=== PATIENT | female | born 1960 | race Caucasian/White ===

== ENCOUNTER 2016-08-07 21:27 | Inpatient (IN) | payer OTHER ==
--- NOTE | ~2016-08-07 | CN ---
Consultation Report [facility] [id number] [place]. [address] NAME: POP REAL : 58 STATUS : ADM IN [facility]#: [id number] AGE: 56 ADM/REG DATE : 08/07/16 MR#: [id number] REPORT SERV DATE: 08/14/16 DICTATED BY: JAQUELINE BARBOZA DATE: 08/13/16 REPORT STATUS : Draft TRANSCRIBED BY: MODL DATE: 08/13/16 DATE OF CONSULTATION: 08/13/2016 REASON FOR CONSULTATION: Assistance with COPD. HISTORY OF PRESENT ILLNESS: Ms Real is a 56-year-old white female, smoker with COPD diagnosed by her primary care physician without pulmonary function testing, who was admitted with complaining of chest pain that ultimately required emergent 3-vessel CABG. Pulmonary was consulted for assistance with COPD. The patient is complaining of cough productive of white sputum, dyspnea on exertion, and occasional wheezing for years. She had been prescribed medications for presumed COPD, but has not been taking them due to financial constraints. She states she has been on inhalers including the "purple one" and "the one with the pill" consistent with Advair and Spiriva. She was on these inhalers and intermittently used rescue albuterol without problems for which she did feel these medications were beneficial. Currently, she is complaining of cough productive of thick white sputum. She feels her breathing is somewhat limited by post CABG pain. PAST MEDICAL HISTORY: 1. COPD as noted above-no previous pulmonary function testing. 2. Smoking/tobacco addiction. 3. Coronary artery disease-status post CABG. 4. Hyperlipidemia. 5. Hypertension. 6. Degenerative joint disease-previous back surgery. 7. Cholecystectomy. 8. Hysterectomy/oophorectomy. 9. Appendectomy. FAMILY HISTORY: She denies a family history of pulmonary diseases. SOCIAL HISTORY: Ms. Real has smoked more than one pack of cigarettes per day for 40 years. Her last cigarette was on the day of admission. She has a history of methamphetamine use and states she quit using methamphetamine in March 2016. She has a remote history of IV drug use. She denies ethanol intake or chewing tobacco. She denies occupational exposures. She works at [employer]. She is a and has two children. MEDICATIONS: She was not on any pulmonary medications as an outpatient. ALLERGIES: ASPIRIN. REVIEW OF SYSTEMS: Consultation Report [place] [id number] [place]. [address] NAME: POP REAL : 58 STATUS : ADM IN [facility]#: [id number] AGE: 56 ADM/REG DATE : 08/07/16 MR#: [id number] REPORT SERV DATE: 08/14/16 DICTATED BY: JAQUELINE BARBOZA DATE: 08/13/16 REPORT STATUS : Draft TRANSCRIBED BY: MODL DATE: 08/13/16 A 10-point system review was conducted and is remarkable for the symptoms as described in the history of present illness. She denies symptoms suggestive of obstructive sleep apnea. PHYSICAL EXAMINATION: VITAL SIGNS: Temperature 98.4 degrees, heart rate 75, blood pressure 125/59, respiratory rate 16, and room air oxygen saturation 90%. GENERAL: A well-nourished, well-developed, white female. Alert, oriented, no apparent distress. Occasional wet cough during the exam. HEENT: Normocephalic. Atraumatic. There is no scleral icterus. The conjunctivae are clear. The oropharynx is clear. NECK: Supple. LUNGS: There are diminished breath sounds throughout. The lungs are clear to auscultation bilaterally. HEART: Regular rate and rhythm. No ectopy was noted. ABDOMEN: Soft. Nontender. Nondistended. There are normal bowel sounds in all four quadrants. BILATERAL EXTREMITIES: There is no clubbing, cyanosis, or edema. NEUROLOGICAL: Nonfocal exam. SKIN: No rashes were noted. LABORATORY RESULTS: Labs were reviewed and are as documented in the record. Notable labs include a white blood cell count of 9.1. IMAGING: The chest x-ray done today did not reveal any infiltrates. There is a small left hydropneumothorax. There are left-sided chest tubes in place. There is a small right pleural effusion. ASSESSMENT AND PLAN: Ms. Real is a 56-year-old white female, smoker with chronic obstructive pulmonary disease and chronic bronchitis who is status post coronary artery bypass graft. RECOMMEND: Bronchodilators-D/C DuoNeb here as an inpatient and start Anoro Ellipta. Recommend discharging the patient with Anoro Ellipta one dose daily. Additionally, we would discharge her with an albuterol rescue inhaler. Recommend starting nebulized albuterol while she is an inpatient. Start inpatient nebulized steroid-budesonide 0.5 mg via nebulization q.12 will be added to her regimen. Improve pulmonary toilet-recommend continuing incentive spirometry. We will add flutter valve to her regimen. Wean supplemental oxygen as tolerated. Outpatient pulmonary function testing when at baseline-outpatient pulmonary followup has Consultation Report [facility] [address] [place]. [address] NAME: POP REAL : 58 STATUS : ADM IN PAT#: [id number] AGE: 56 ADM/REG DATE : 08/07/16 MR#: [id number] REPORT SERV DATE: 08/14/16 DICTATED BY: JAQUELINE BARBOZA DATE: 08/13/16 REPORT STATUS : Draft TRANSCRIBED BY: ERNESTO DATE: 08/13/16 been arranged. She will have an outpatient spirogram in our office. Ms. Real was counseled for more than 5 minutes regarding the importance of continued abstinence from cigarette smoking. Agree with nicotine replacement while she is an inpatient. PS/ERNESTO Jaqueline Barboza M.D. / [id number] CC: Bren Randall M.D.
--- NOTE | ~2016-08-07 | DS ---
Discharge Summary [facility] [address] [place]. [address] NAME: POP REAL : 58 STATUS : DIS IN PAT#: [id number] AGE: 56 ADM/REG DATE : 08/07/16 MR#: [id number] REPORT SERV DATE: 08/25/16 DICTATED BY: SYED VU DATE: 08/24/16 REPORT STATUS : Draft TRANSCRIBED BY: ERNESTO DATE: 08/24/16 Data Collection from hospitalization DISCHARGE DIAGNOSES: 1. Coronary artery disease status post coronary artery bypass grafting (with history of stent). 2. Recent myocardial infarction. 3. Smoking. 4. Chronic obstructive pulmonary disease. 5. History of hypertension with hypotension postoperatively. 6. Acute blood loss anemia. 7. Paroxysmal atrial fibrillation. 8. Hyperlipidemia. CONSULTATIONS: 1. Jaqueline Tian M.D. 2. Bren Randall M.D. PROCEDURES PERFORMED: 1. Cardiac catheterization, 08/09/2016. 2. Urgent coronary artery bypass grafting x3 with SRIVASTAVA to the LAD, reverse saphenous vein graft placed to the first obtuse marginal, reverse saphenous vein graft placed to the distal right coronary artery. 3. Endoscopic vein harvest of the saphenous vein from the right leg. 4. Transesophageal echocardiography, 08/10/2016. 5. Carotid blood flow study, 08/09/2016. DISCHARGE MEDICATIONS: Proventil one puff via inhaler every four hours as needed, Cordarone 200 mg twice a day, vitamin C 1000 mg twice a day, aspirin 81 mg daily, Lipitor 40 mg at bedtime, Lanoxin 0.125 mg daily, Percocet 10/325 one tablet every four hours as needed, Xarelto 20 mg with supper, and Anoro Ellipta one inhalation daily. CONDITION AT DISCHARGE: Stable. DISPOSITION: The patient was discharged home to be followed by home health care on a low- sodium, low-cholesterol, cardiac diet with activities as instructed. She will follow up with Dr. Oz Krishnan on 09/15/[address] Jaqueline Tian in one to two months following discharge. She will follow up with Dino Lozano on 09/09/2016 and at cardiac rehab on 10/05/2016. HOSPITAL COURSE: This is a 56-year-old female who has a history significant for coronary artery disease. Her last cardiac catheterization was in March 2016 when she underwent percutaneous coronary intervention by Dr. Krishnan. She had been doing well on an outpatient basis. She had been unable to afford high-intensity statin and Brilinta, but has been taking aspirin, Coreg, and lisinopril. She said that she has been 115 days drug-free, and her urine drug screen reflect her abstinence from amphetamines. She was at work at [employer] when she began to experience 10/10 left-sided chest pain. It radiated to her back and shoulder. It was associated with mild shortness of breath. She was found to have Discharge Summary [facility] [address] [place]. [address] NAME: POP REAL : 58 STATUS : DIS IN PAT#: [id number] AGE: 56 ADM/REG DATE : 08/07/16 MR#: [id number] REPORT SERV DATE: 08/25/16 DICTATED BY: SYED VU DATE: 08/24/16 REPORT STATUS : Draft TRANSCRIBED BY: ERNESTO DATE: 08/24/16 elevated cardiac biomarkers. Troponins were found to be 0.73 to 0.82. She was felt to have had a lateral and anterolateral ST-segment changes consistent with ischemia. She had a non- ST-elevation myocardial infarction. She was seen by Dr. Bren Randall. Heparin drip was going to be continued via the ACS protocol. High intensity statin would be restarted. Her beta-devaughn and lisinopril would be continued. Nitroglycerin paste was going to be added for pain. Brilinta was going to be held. She was admitted to the hospital at this time for further evaluation and treatment. Following admission, she was taken to the cardiac labor relations representative where she underwent the above- mentioned procedure by Dr. Aj Gill. She tolerated this well, and there were no complications. Her coronary arteriogram revealed significant three-vessel coronary disease with severe in-stent restenosis in the circumflex as well as significant in-stent restenosis of the right coronary artery. There was also significant left anterior descending disease, and her ejection fraction had declined from a prior catheterization to 45%. It was felt that she would need to undergo coronary artery bypass grafting. A carotid blood flow study was performed. On the , the patient was taken to the operating room where she underwent the above-mentioned procedure. She tolerated this well, and there were no complications. On postop day #1, she was up sitting in a chair. She said she felt well, she had no edema. Her incisions looked okay. Beta-devaughn was held. On postop day 2, white count was 10.8, heard few crackles in her lung bases. She had good air entry bilaterally. She was in a normal sinus rhythm. Her pacing wires were going to be removed. She was off Levophed. On 08/13/2016, she had coarse rhonchi in her lungs. She had no edema. She had a productive cough. She felt tired and restless. She remained in a normal sinus rhythm. She was seen by Dr. Jaqueline Tian for assistance with COPD. She had been complaining of a cough productive of white sputum, dyspnea on exertion, and occasional wheezing for years. She has been prescribed medication for the presumed COPD, but had not been taking them due to financial constraints. She said that she had been on her inhalers which was consistent with Advair and Spiriva. She had intermittently use Rescue Albuterol without problem. She did feel these medications were beneficial. Inpatient nebulized steroids - budesonide would be added to her regimen. She was encouraged to continue incentive spirometry. A flutter valve was added to her regimen. Anoro Ellipta was going to be started. She should also be discharged with an albuterol rescue inhaler. She recommended starting nebulized albuterol while the patient was an inpatient. We would wean supplemental oxygen as tolerated. Outpatient pulmonary function testing should be arranged when she had baseline outpatient pulmonary followup. An outpatient spirogram would be performed in her office. She was instructed to stop smoking. Nicotine replacement would be provided while she was an inpatient. We felt the patient would need annual lung cancer screening and CT scans of the chest. This would be arranged as an outpatient. The next day, she had no chest pain or dyspnea. IV amiodarone loading continued. IV fluids and red blood cell transfusions were provided. Lasix was stopped. She did have some nausea that morning. On the , she was in atrial fibrillation on telemetry. She had no chest pain or dyspnea. She developed some hypotension, and this precludes calcium channel devaughn or beta devaughn. Anticoagulation will be started once the chest tube was removed. Additional digoxin was going to be given. Midodrine was increased. Gentle hydration was being provided. We were going to check an a.m. cortisol. A PICC line was inserted. Discharge planning was performed. She went back into a normal sinus rhythm. On 08/17/2016, O2 saturation was 85% on room air. She had no Discharge Summary [address] [address] NAME: POP REAL : 58 STATUS : DIS IN PAT#: [id number] AGE: 56 ADM/REG DATE : 08/07/16 MR#: [id number] REPORT SERV DATE: 08/25/16 DICTATED BY: SYED VU DATE: 08/24/16 REPORT STATUS : Draft TRANSCRIBED BY: ERNESTO DATE: 08/24/16 significant edema. Her incisions looked okay. Discharge instructions were given. Due to her improved and stable condition, she was discharged home to be followed by home health care with the above-stated instructions. Information collected by: Pam Oconnor I submit the above information as my discharge summary. KATHE/ERNESTO Syed Vu M.D. / [id number] CC: Bren Randall M.D.
--- NOTE | ~2016-08-07 | OP ---
Record Of Operation [facility] [address] [place]. [address] NAME: POP REAL : 58 STATUS : ADM IN PAT#: [id number] AGE: 56 ADM/REG DATE : 08/07/16 MR#: [id number] REPORT SERV DATE: 08/10/16 DICTATED BY: SYED VU DATE: 08/10/16 REPORT STATUS : Draft TRANSCRIBED BY: MODL DATE: 08/10/16 DATE OF PROCEDURE: 08/10/2016 PREOPERATIVE DIAGNOSES: 1. Coronary artery disease with non-ST elevation myocardial infarction. 2. Hypertension. 3. Chronic obstructive pulmonary disease. 4. Tobacco abuse. 5. Methamphetamine and IV drug abuse. 6. Previous percutaneous coronary intervention and stenting of the coronary artery. POSTOPERATIVE DIAGNOSES: 1. Coronary artery disease with non-ST elevation myocardial infarction. 2. Hypertension. 3. Chronic obstructive pulmonary disease. 4. Tobacco abuse. 5. Methamphetamine and IV drug abuse. 6. Previous percutaneous coronary intervention and stenting of the coronary artery. PROCEDURE PERFORMED: 1. Urgent coronary artery bypass grafting x3, left internal mammary artery placed to left anterior descending, reverse saphenous vein graft placed to the first obtuse marginal, reverse saphenous vein graft placed to the distal right coronary artery. 2. Endoscopic vein harvest of saphenous vein from the right leg. 3. Transesophageal echocardiography. SURGEON: Syed Vu M.D. ASSISTANTS: Randall Joseph and Jones French. ANESTHESIA: General with Dr. Orozco. SENIOR ENERGY TRADER: Oz Krishnan M.D. INDICATIONS: This is a 56-year-old female who has a long history of tobacco abuse. She also has a history of methamphetamine and other IV drug abuse from which she said she has abstained for 115 days. She has a history of coronary artery disease with previous stenting of the coronaries in the past. She states that approximately the night of arrival, 08/07/2016, she developed severe midsternal chest pain radiating to both shoulders, neck, and back. She had associated diaphoresis, but no nausea or vomiting. EMS was summoned, the patient was brought to [facility], and in the emergency room, had an abnormal EKG with an elevated troponin. She ruled in for non-ST elevation myocardial infarction, underwent a cardiac catheterization demonstrating progression of her disease with in-stent stenosis of the right coronary and obtuse marginal stents and significant stenosis in the LAD system. Her ventricular function was mildly reduced from previous studies where on this study, her ejection fraction was 45%. Preoperative echocardiography demonstrated mild Record Of Operation [facility] [address] [place]. [address] NAME: POP REAL : 58 STATUS : ADM IN PAT#: [id number] AGE: 56 ADM/REG DATE : 08/07/16 MR#: [id number] REPORT SERV DATE: 08/10/16 DICTATED BY: SYED VU DATE: 08/10/16 REPORT STATUS : Draft TRANSCRIBED BY: MODL DATE: 08/10/16 aortic valve insufficiency and mild mitral valve insufficiency. We were asked to see the patient for possible urgent revascularization secondary to severity of disease and worsening ejection fraction and non-ST elevation myocardial infarction. We discussed this operation with the patient and her family and after discussing operations, indication, and risks. Overall, SDS predicted mortality was less than 1%, morbidity mortality less than 10%, and this was shared with the family. FINDINGS AT OPERATION: 1. Cross-clamp 53 minutes and total pump time 66 minutes. 2. The LAD was 1.75 mm and moderately diseased vessel. A 2.5 mm SRIVASTAVA was anastomosed to it with good runoff. 3. The first obtuse marginal was 1.5 mm and moderately diseased. A 3 to 4 mm RSVG was anastomosed to it with good runoff. 4. The distal right coronary artery was 2 mm and moderately diseased. A 4 mm RSVG was anastomosed to it with good runoff. 5. The second obtuse marginal vessel which was the terminal OM and the diagonal vessels were too small to graft. 6. The patient has significant and severe diffuse coronary artery disease. In the inferior-posterior wall of the heart, there was evidence of old myocardial infarction and scarring, this was in the distribution of the second obtuse marginal vessel and RCA. 7. The vein quality was okay, 3 to 4 mm. All the grafts had good Doppler signal at the end of the case. Portion of the vein was not usable for conduit. 8. JJ demonstrated good ventricular function at the end of the operation. There was only a mild aortic insufficiency and mild mitral valve insufficiency. PATHOLOGIC SPECIMENS: None. DESCRIPTION OF PROCEDURE: The patient was brought to the operating suite where general anesthesia was induced and airway secured with an endotracheal tube. Lines were secured by Anesthesia and Middleton catheter was placed. The patient's chest, abdomen, groin, and legs were prepped with Hibiclens and ChloraPrep and draped with Ioban sterile sheets. JJ probe was placed by Anesthesia and examination carried out as discussed above. The saphenous vein was harvested from the right leg using endoscopic technique. Briefly, the vein was cut directly down upon through a 2 cm incision placed in the medial aspect of the right knee. Then, using VasoView trocars, the vessel was dissected from the surrounding subcutaneous tissue and fat. The side branches were identified, ligated, and divided with cautery. Once adequate length of vein had been dissected, a counter incision made up in the groin and in the lower leg where the vein was ligated, divided, and brought through the knee incision. The vein quality was good. The leg was made hemostatic and closed in layers with absorbable suture, and the skin was closed in subcuticular fashion. Next, a midline sternal incision was made and the sternum opened with a saw. The left hemithorax was elevated and the endothoracic fascia was incised. Side branch of the MIKE were clipped and divided. Once the MIKE was completely dissected, the patient was anticoagulated with heparin and chest tube placed in the left pleural cavity. The MIKE was Record Of Operation [facility] [address] [facility] [place]. [address] NAME: POP REAL : 58 STATUS : ADM IN [facility]#: [id number] AGE: 56 ADM/REG DATE : 08/07/16 MR#: [id number] REPORT SERV DATE: 08/10/16 DICTATED BY: SYED VU DATE: 08/10/16 REPORT STATUS : Draft TRANSCRIBED BY: MODL DATE: 08/10/16 clipped and divided distally. There was good flow through the MIKE and its pedicle was infiltrated with papaverine. Next, the Shelton retractor was placed in the pericardium over from innominate vein and diaphragm where it was T'd and tacked to side of the chest wall. Cannulation pursestring sutures were placed and cannulation was carried out in a routine manner. A retrograde cardioplegia cannula was placed in the coronary sinus. When all was in readiness, the patient was placed on cardiopulmonary bypass. The distal targets were marked out in the heart as described in the findings. Then, a heart support was placed. The aorta was crossclamped and an initial dose of cold blood cardioplegia solution was given in a combination of antegrade and retrograde fashion, then in a retrograde manner following proximal anastomoses. Following the first dose cardioplegia, the heart was positioned for the distal RCA graft. Arteriotomy was made. The vein graft was trimmed and anastomosed to it with 7-0 Prolene. This vein graft was then measured to the ascending aorta where it was divided. We then positioned the heart for the obtuse marginal graft. The arteriotomy was made in the first obtuse marginal vessel distal to the stent. The vein graft was trimmed and anastomosed to this vessel with 7-0 Prolene. This vein graft was measured back to the left side of the ascending aorta where it was divided. Next, proximal ends of the two vein grafts were anastomosed to 4.5 mm punch aortotomy with 6-0 Prolene. Another dose of cardioplegia was given, and we then positioned the heart for the LAD graft. Arteriotomy was made and the MIKE was brought out of the left chest through a notch in the pericardium over the pulmonary artery. The MIKE was opened and anastomosed to the LAD with a running suture of 8-0 Prolene. The endothoracic fascia was tacked to the epicardium. The patient was placed in the Trendelenburg and a final dose of warm blood cardioplegia was given in a retrograde fashion. Ventricular and atrial pacing wires were placed. Following the last dose cardioplegia and deairing of the aorta, the aortic cross clamp was removed. The distal and proximal anastomoses were inspected and made hemostatic. Doppler demonstrated good flow through the grafts. The heart resumed a normal sinus rhythm spontaneously and ventilation was begun. When the heart demonstrated good contractility, it was allowed to fill and eject. When deairing was completed, the patient was taken out of Trendelenburg and the ascending aortic vent removed and these pursestring sutures tied and reinforced. The patient was weaned from cardiopulmonary bypass with low-dose inotropic support. The venous cannulas were removed. JJ examination demonstrated good ventricular function with mild aortic and mitral insufficiency as seen earlier. Protamine was administered by Anesthesia, and following a period of hemodynamic stability, the aortic cannula was removed and these pursestring sutures tied and reinforced. The patient continued do well and chest irrigated copiously with saline. Meticulous Record Of Operation [facility] [address] [place]. [address] NAME: POP REAL : 58 STATUS : ADM IN [facility]#: [id number] AGE: 56 ADM/REG DATE : 08/07/16 MR#: [id number] REPORT SERV DATE: 08/10/16 DICTATED BY: SYED VU DATE: 08/10/16 REPORT STATUS : Draft TRANSCRIBED BY: ERNESTO DATE: 08/10/16 hemostasis was obtained. Hemasorb was placed along the cut edge of the sternum. Once hemostasis was assured, the pericardium was draped over the anterior surface of the heart and tacked into position. Doppler demonstrated good flow through the grafts following protamine administration. Then, chest tubes were placed and the sternum reapproximated with eight sternal wires. The clavipectoral fascia and linea alba were closed #1 Stratafix as was the subcutaneous tissue. The skin was closed in a subcuticular fashion. The patient tolerated the procedure well. There were no complications. Sponge and needle counts were correct. DISPOSITION: The patient was left intubated, sedated, and transported to the intensive care unit in stable condition. KAROLYN/ERNESTO Syed Vu M.D. / [id number] CC: Leobardo Rubin M.D.
--- NOTE | ~2016-08-07 | CN ---
Consultation Report [facility] [address] [place]. [address] NAME: POP REAL : 58 STATUS : ADM IN PAT#: [id number] AGE: 56 ADM/REG DATE : 08/07/16 MR#: [id number] REPORT SERV DATE: 08/16/16 DICTATED BY: JAQUELINE BARBOZA DATE: 08/13/16 REPORT STATUS : Draft TRANSCRIBED BY: MODL DATE: 08/13/16 DATE OF CONSULTATION: ADDENDUM: This is an addendum to the pulmonary consultation #[id number]. The patient will need annual lung cancer screening, CT scans of the chest. This will be arranged for her outpatient. PS/ERNESTO Jaqueline Barboza M.D. / [phone] CC: Bren Randall M.D.
--- NOTE | ~2016-08-07 | HP ---
History And Physical [facility] [id number] [place]. [address] NAME: KAIA REAL : 58 STATUS : ADM Alvina PAT#: [id number] AGE: 56 ADM/REG DATE : 08/07/16 MR#: [id number] REPORT SERV DATE: 08/08/16 DICTATED BY: DATE: REPORT STATUS : Draft TRANSCRIBED BY: MODL DATE: 08/08/16 DATE OF ADMISSION: 08/07/2016 CHIEF COMPLAINT/REASON FOR ADMISSION: Chest pain. Elevated cardiac biomarkers. HISTORY OF PRESENT ILLNESS: Kaia Real is a 56-year-old female, who has a past medical history significant for coronary artery disease. Last cardiac catheterization performed in March of 2016 when she underwent PCI by Dr. Krishnan. The patient had been doing well on an outpatient basis. She was unable to afford high intensity statin and Brilinta but she had been taking aspirin, Coreg, and lisinopril. She states that she has been 115 days drug- free and her urine drug screen reflects her abstinence from amphetamines. She was at work at the [employer] when she experienced 10/10 left-sided chest pain. It radiated to her back and her shoulder. It was associated with mild shortness of breath. She is currently having 3/10 chest pain but resting comfortably. PAST MEDICAL HISTORY: 1. Inferior ST-elevation myocardial infarction status post bare metal stent to the RCA March of 2016 and one bare metal stent to the OM, March 2016. 2. Hypertension. 3. COPD. 4. Tobacco abuse. 5. History of methamphetamine use abstinence for 115 days. SOCIAL HISTORY: The patient continues to smoke a half a pack of cigarettes every 2 days. She does not drink or use extracurricular drugs. FAMILY HISTORY: Noncontributory. ALLERGIES: HIGH-DOSE ASPIRIN CAUSES RASH. SHE IS TOLERANT TO LOW-DOSE ASPIRIN. OUTPATIENT MEDICATIONS: Include 1. Aspirin 81 mg p.o. daily. 2. Coreg 6.25 mg p.o. b.i.d. 3. Lisinopril 10 mg p.o. daily. REVIEW OF SYSTEMS: All systems were reviewed and is negative except for what is dictated in the HPI. PHYSICAL EXAMINATION: VITAL SIGNS: Blood pressure 144/70, pulse is 62 to 69, respirations 13, and oxygen saturation is 96% on room air. GENERAL: Mrs. Real is a 56-year-old female. She appears older than her stated age. NECK: No jugular venous distention. No carotid bruits. HEART: Regular rate and rhythm. Normal S1, S2. No murmurs, rubs, or gallops auscultated. Occasional extra systole is auscultated. LUNGS: Slight inspiratory and expiratory wheezes in the posterior lung salazar, otherwise History And Physical [address] [address] NAME: KAIA REAL : 58 STATUS : ADM Alvina PAT#: [id number] AGE: 56 ADM/REG DATE : 08/07/16 MR#: [id number] REPORT SERV DATE: 08/08/16 DICTATED BY: DATE: REPORT STATUS : Draft TRANSCRIBED BY: MODL DATE: 08/08/16 clear. ABDOMEN: Soft and nontender. EXTREMITIES: Warm and well perfused. There is no pitting edema. Kannan's test of the right wrist was normal. NEUROLOGIC: There is no focal neurologic deficits appreciated. REVIEW OF TEST RECORDS AND MEDICAL DECISION MAKING: A chest x-ray performed on admission documented no evidence of acute cardiopulmonary disease. The patient appears slightly hyperexpanded. There was no evidence of pulmonary edema. LABORATORY RESULTS: Noted sodium of 143, potassium of 3.2, BUN of 13 and creatinine is 0.89, hemoglobin 12, hematocrit 36.5. Troponin 0.73 to 0.82. An EKG performed on admission documented normal sinus rhythm at 65 beats per minute. There is lateral and anterolateral ST-segment changes consistent with ischemia. IMPRESSION REPORT AND PLAN: 1. [id number] GA. 2. Hypertension. 3. History of drug abuse. 4. Current tobacco abuse. 5. COPD. RECOMMENDATIONS: 1. Continue heparin drip via the ACS protocol. 2. Restart high-intensity statin. 3. Continue her beta devaughn and lisinopril as per outpatient doses. 4. Add nitroglycerin paste 1 inch q.6 hours for pain. 5. I will hold Brilinta pending invasive evaluation in case the patient would need to undergo emergent coronary artery bypass grafting. 6. Additional recommendations pending clinical course. Ugo/ERNESTO Bren Randall M.D. / [phone] CC: Bren Randall M.D.
--- NOTE | ~2016-08-07 | CN ---
Consultation Report [facility] [address] [place]. [address] NAME: POP REAL : 58 STATUS : ADM Alvina PAT#: [id number] AGE: 56 ADM/REG DATE : 08/07/16 MR#: [id number] REPORT SERV DATE: 08/10/16 DICTATED BY: DINO HALEY DATE: 08/09/16 REPORT STATUS : Draft TRANSCRIBED BY: MODL DATE: 08/09/16 CONSULTATION NOTE DATE OF CONSULTATION: 08/09/2016 CHIEF COMPLAINT: "I had chest pain." HISTORY OF PRESENT ILLNESS: This is a 56-year-old white female, who appears older than her chronological age. She reports that night before last, while at work at the [employer], she experienced onset of severe midsternal chest pain. This radiated into both shoulders, her neck, back, and arms. It was associated with sweating, no nausea or vomiting. No diaphoresis. No palpitations. She had no syncope or near syncope. She says the pain lasted approximately 45 minutes or at least until EMS came and gave her nitroglycerin. She was taken to the hospital and in the emergency room had abnormal EKG with changes in the lateral leads, and previous inferior myocardial infarction. She also had elevation of troponin I and was hospitalized for further evaluation. PRIOR MEDICAL HISTORY: Significant for her hypertension, previously diagnosed coronary artery disease with PCI and bare metal stenting on 04/15/2016, hypertension, hyperlipidemia, and continued smoking. She also has history of methamphetamine drug abuse as well as IV drug abuse, although none current, as evidenced by current urine drug screen. Today, she underwent coronary arteriogram, and this was significant for three-vessel coronary artery disease with severe in-stent restenosis in the circumflex as well as significant in-stent restenoses of the right coronary artery. There was also significant left anterior descending disease and her ejection fraction had declined from prior catheterization to 45%. We were asked to see for coronary artery bypass grafting at this hospitalization, and this was discussed with the patient and her family today. Prior medical history, significant for her COPD and tobacco abuse as well as the aforementioned problems. PRIOR SURGICAL HISTORY: Significant for hysterectomy, previous back surgery for degenerative disk disease, and oophorectomy. She has also had prior cholecystectomy. ALLERGIES: INCLUDE ASPIRIN, WHICH CAUSES RASH AND NAUSEA, ALTHOUGH SHE IS CURRENTLY LISTED BEING ON ASPIRIN. MEDICATIONS: Her medications include atorvastatin 40 mg p.o. at bedtime, and she has not been taking this. Carvedilol 6.25 p.o. b.i.d., she stopped taking this due to not getting refills. Lisinopril 10 mg p.o. daily and was on Brilinta 90 mg p.o. b.i.d., but she did not get this refilled, and so has not been taking it. Consultation Report [facility] [id number] [place]. [address] NAME: POP REAL : 58 STATUS : ADM Alvina PAT#: [id number] AGE: 56 ADM/REG DATE : 08/07/16 MR#: [id number] REPORT SERV DATE: 08/10/16 DICTATED BY: DINO HALEY DATE: 08/09/16 REPORT STATUS : Draft TRANSCRIBED BY: ERNESTO DATE: 08/09/16 FAMILY HISTORY: Significant for coronary artery disease. SOCIAL HISTORY: She is employed at the [employer] as a [employer]. She has smoked for about 37 years up to a pack per day, currently 1/2 pack per day. She uses illicit drugs, none current. REVIEW OF SYSTEMS: GENERAL: Negative for any recent weight change, fevers, chills, night sweats, or malaise. She does note a declining exercise tolerance over the past several months. ENT: Positive for broken teeth and missing teeth. She denies any difficulty with vision or hearing. SKIN, HAIR, AND NAILS: Denies any lesions or masses or rashes. RESPIRATORY: Positive for shortness of breath, chronic cough, and COPD as well as cigarette smoking. She denies any hemoptysis. CV: Positive for chest pain, exercise intolerance, and shortness of breath. She has easy fatigability. She denies any palpitations or abnormal heart rhythm. GI: Negative. : Negative. MUSCULOSKELETAL: Negative. HEME/ONC: Negative for free bleeding or easy bruising. She was on Brilinta and has not been taking it recently. COMMUNICABLE DISEASES: Positive for prior hepatitis A and hepatitis B per patient. She does not know her current hep B status. NEURO/PSYCH: Positive for her IV drug use and anxiety and depression. Otherwise, negative or as above. PHYSICAL EXAMINATION: GENERAL: She is a tearful, depressed-appearing white female, in no acute distress. Her height is 162.56 cm and weight 55.87 kg. VITAL SIGNS: Blood pressure 142/70, temperature 98, pulse 66, respirations 13, and saturation 93% on room air. HEENT: Normocephalic and atraumatic. SKIN, HAIR, AND NAILS: No lesions, masses, or rashes. Hair is short and marques. HEENT: Normocephalic, atraumatic. Pupils are equal, round, and reactive to light and accommodation, sclerae are clear, conjunctivae are pink. No xanthelasma. Oral and buccal mucosa is pink and moist, teeth broken and some are missing. Mallampati class 1 airway. NECK: Supple. No restricted range of motion, she does have right carotid bruit to auscultation. No jugular venous distention. CHEST: She has bibasilar rhonchi and a few coarse crackles to auscultation. Some clearing of rhonchi with cough. No wheezes. No use of accessory muscles. No external chest deformity. BREASTS: Not examined. CV: Regular rate and rhythm without murmur or rub. She has palpable and symmetric central and peripheral pulses. No clubbing, cyanosis, or edema. There are lower extremity varicosities. Consultation Report [address] [place]. [address] NAME: POP REAL : 58 STATUS : ADM Alvina PAT#: [id number] AGE: 56 ADM/REG DATE : 08/07/16 MR#: [id number] REPORT SERV DATE: 08/10/16 DICTATED BY: DINO HALEY DATE: 08/09/16 REPORT STATUS : Draft TRANSCRIBED BY: MODSmita DATE: 08/09/16 ABDOMEN: Soft, obese, nontender with normoactive bowel sounds. No hepatosplenomegaly. /RECTAL: Declined. MUSCULOSKELETAL: No kyphoscoliosis. No asymmetry. NEURO/PSYCH: Depressed affect, normal speech and flow of speech. Cranial nerves II through XII are intact. No tremors and no focal neurologic deficits. DIAGNOSTIC DATA: Her coronary arteriogram, which I reviewed today showing three-vessel coronary artery disease and in-stent restenoses with diminished left ventricular function, inferior hypokinesis is noted. Her echocardiogram from last year in March showing mild to moderate mitral regurgitation and mild aortic insufficiency, as well as today's echo showing mild to moderate aortic insufficiency and mild mitral insufficiency. Her ejection fraction on ventriculogram today was 45%. EKG showing Q-waves in the inferior leads consistent with previous myocardial infarction, and lateral ST-T wave changes. Her troponin I was elevated at 0.82. CBC shows mild anemia with hemoglobin of 11.7, hematocrit of 35.9, normal WBC and platelets. Electrolyte profile shows sodium of 146, potassium 3.4, chloride 109, CO2 of 27, BUN 10, and creatinine 0.74. Lipid profile shows total cholesterol of 133, HDL which is low at 33, LDL at 66, and triglycerides 172. Her chest x-ray was reviewed showing no acute cardiopulmonary abnormality and the lungs to be well expanded with no flattening of the hemidiaphragms. IMPRESSION: 1. Known three-vessel coronary artery disease, worsened from her prior exam in March 2016. 2. Recent non-ST elevation myocardial infarction. 3. Mild to moderate aortic insufficiency on echo. 4. Mild mitral regurgitation. 5. Right carotid bruit, likely referable to the external carotid given elevated velocities there in the current carotid ultrasound. 6. Current cigarette smoker, which is associated with increased risk of pulmonary problems post urgent bypass grafting. 7. Prior history of drug abuse, specifically IV drug abuse. 8. Prior hepatitis B. 9. Status post prior percutaneous coronary intervention with bare metal stenting on 04/15/2016. 10.Hypertension. 11.Hyperlipidemia. 12.Chronic obstructive pulmonary disease. PLAN: Discussed with the patient and her family at length today. We talked about coronary artery bypass grafting, usual perioperative course, indications, benefits, risks, including serious risks and alternatives. Serious risks include things such as bleeding, need for Consultation Report [facility] [id number] [place]. [address] NAME: POP REAL : 58 STATUS : ADM Alvina PAT#: [id number] AGE: 56 ADM/REG DATE : 08/07/16 MR#: [id number] REPORT SERV DATE: 08/10/16 DICTATED BY: IDNO HALEY DATE: 08/09/16 REPORT STATUS : Draft TRANSCRIBED BY: MODL DATE: 08/09/16 blood or blood product transfusion and their attendant risks, infection including deep sternal infection, mediastinitis, damage to the kidneys, liver, or lungs, heart attack, stroke, abnormal heart rhythm, pneumonia given close proximity of her cigarette smoking, pain, and even . The patient indicates her understanding and wishes to proceed. We talked about her valvular dysfunction, and this will be reviewed at surgery with intraoperative transesophageal echocardiogram. Using The Society of Thor[employer] Database, expected risk was calculated with risk of mortality at 1.055%, any morbidity or mortality at 10.724%. This was discussed with the patient and her family today. Current plan is to proceed with surgical revascularization tomorrow. We appreciate the opportunity to participate in her care. Sincerely, JASMIN/ERNESTO Dino Haley NYuniel / [id number] CC: Leobardo Rubin [facility]
[~2016-08-07 21:27] MED LIST: ASAB PO; BACDS PO; BRILINTA90 MG PO; COREG6 PO; GOODY'S EX-STR1 EAC1 PO; LIPITOR40 PO; LISINOPRIL40 MG PO; NEUR600 PO; PRIN10 PO
[2016-08-07 22:58] LABS: BASOPHILS 0.4 %; BASOPHILS ABSOLUTE 0.03 10/3/uL (0.0-0.16); EOSINOPHILS 3.2 %; EOSINOPHILS ABSOLUTE 0.23 10/3/uL (0.0-0.53); ER CBC TAT 0 Hrs 09 Mins; HEMATOCRIT 40.1 % (36.0-48.0); HEMOGLOBIN 13.1 g/dL (12.0-16.0); IMMATURE GRANULOCYTES 0.1 %; IMMATURE GRANULOCYTES ABSOLUTE 0.01 10/3/uL (0.0-0.11); LYMPHOCYTES 29.5 %; LYMPHOCYTES ABSOLUTE 2.13 10/3/uL (0.67-4.30); MEAN CORPUS HGB CONC 32.7 g/dL (32.0-36.0); MEAN CORPUSCULAR HEMOGLOB 28.1 pg (26.0-34.0); MEAN CORPUSCULAR VOLUME 85.9 fL (80-100); MEAN PLATELET VOLUME 10.2 fL (9.2-13.0); MONOCYTES 6.4 %; MONOCYTES ABSOLUTE 0.46 10/3/uL (0.21-1.20); NEUTROPHILS 60.4 %; NEUTROPHILS ABSOLUTE 4.37 10/3/uL (2.02-8.40); PLATELET COUNT 361 10/3/uL (150-400); RED CELL COUNT 4.67 10/6/uL (4.0-5.6); WHITE BLOOD CELLS 7.2 10/3/uL (4.5-10.5)
[2016-08-07 22:59] LABS: MANUAL DIFF NO %
[2016-08-07 23:03] LABS: PARTIAL THROMBO TIME 32.2 SEC (22.5-37.2); PROTIME (NOT ORD) 12.6 SEC (12.0-14.5)
[2016-08-07 23:14] LABS: ACETAMINOPHEN LEVEL (TYLENOL) < 2.0 MCG/ML (10.0-20.0); ALCOHOL < 10 MG/DL (0)
[2016-08-07 23:16] LABS: CALCIUM, SERUM 8.9 MG/DL (8.5-10.4); CHLORIDE, SERUM 104 MMOL/L (96-112); CO2 (CARBON DIOXIDE) 28 MMOL/L (24-34); CREATININE 0.89 MG/DL (0.55-1.02); GFR AFRICAN AMERICAN 83 ML/MIN (>=60); GFR NON AFRICAN AMERICAN 72 ML/MIN (>=60); POTASSIUM, SERUM 3.2 MMOL/L (3.5-5.3); SODIUM, SERUM 143 MMOL/L (135-148)
[2016-08-07 23:17] LABS: BUN (BLOOD UREA NITROGEN) 13 MG/DL (6-23); GLUCOSE, SERUM 119 MG/DL (60-99)
[2016-08-07 23:18] LABS: CHEST PAIN PROFILE TAT 0 Hrs 29 Mins; TROPONIN I 0.73 NG/ML (<0.05)
[2016-08-08 00:19] LABS: AMPHETAMINES (NOT ORD) NEG (NEG); BARBITURATES (NOT ORDERED NEG (NEG); BENZODIAZEPINES (NOT ORD) NEG (NEG); CANNABINOIDS (THC) NEG (NEG); COCAINE (NOT ORDERED) NEG (NEG); OPIATES NEG (NEG); PHENCYCLIDINE(PCP) NEG (NEG); TRICYCLICS NEG (NEG)
[2016-08-08 04:29] LABS: BASOPHILS 0.4 %; BASOPHILS ABSOLUTE 0.03 10/3/uL (0.0-0.16); EOSINOPHILS 4.4 %; EOSINOPHILS ABSOLUTE 0.34 10/3/uL (0.0-0.53); HEMATOCRIT 36.5 % (36.0-48.0); IMMATURE GRANULOCYTES 0.3 %; IMMATURE GRANULOCYTES ABSOLUTE 0.02 10/3/uL (0.0-0.11); LYMPHOCYTES 33.4 %; LYMPHOCYTES ABSOLUTE 2.59 10/3/uL (0.67-4.30); MEAN CORPUS HGB CONC 32.9 g/dL (32.0-36.0); MEAN CORPUSCULAR HEMOGLOB 28.2 pg (26.0-34.0); MEAN CORPUSCULAR VOLUME 85.9 fL (80-100); MEAN PLATELET VOLUME 9.7 fL (9.2-13.0); MONOCYTES 7.9 %; MONOCYTES ABSOLUTE 0.61 10/3/uL (0.21-1.20); NEUTROPHILS 53.6 %; NEUTROPHILS ABSOLUTE 4.16 10/3/uL (2.02-8.40); PLATELET COUNT 309 10/3/uL (150-400); RBC DISTRIBUTION WIDTH 14.8 % (12.0-16.0); RED CELL COUNT 4.25 10/6/uL (4.0-5.6); WHITE BLOOD CELLS 7.8 10/3/uL (4.5-10.5)
[2016-08-08 04:42] LABS: MANUAL DIFF NO %
[2016-08-08 04:53] LABS: TROPONIN I 0.82 NG/ML (<0.05)
[2016-08-08 07:36] LABS: CHOL/HDL RATIO(NOT ORDER) 4.1 (0-5); POTASSIUM, SERUM 3.9 MMOL/L (3.5-5.3)
[2016-08-08 21:58] LABS: ASCORBIC ACID (UR NOT ORDER) NEG (NEG); BILIRUBIN, URINE NEGATIVE (NEG); KETONE, URINE NEGATIVE (NEG); LEUKOCYTE ESTERASE(NOT OR NEG (NEG); WBC (NOT ORDERED) (RFLEX) 2 (0-5)
[2016-08-09 06:44] LABS: BASOPHILS 0.2 %; BASOPHILS ABSOLUTE 0.01 10/3/uL (0.0-0.16); EOSINOPHILS 2.5 %; EOSINOPHILS ABSOLUTE 0.15 10/3/uL (0.0-0.53); HEMATOCRIT 35.9 % (36.0-48.0); HEMOGLOBIN 11.7 g/dL (12.0-16.0); IMMATURE GRANULOCYTES 0.2 %; IMMATURE GRANULOCYTES ABSOLUTE 0.01 10/3/uL (0.0-0.11); LYMPHOCYTES 32.8 %; LYMPHOCYTES ABSOLUTE 1.96 10/3/uL (0.67-4.30); MEAN CORPUS HGB CONC 32.6 g/dL (32.0-36.0); MEAN CORPUSCULAR HEMOGLOB 27.5 pg (26.0-34.0); MEAN CORPUSCULAR VOLUME 84.5 fL (80-100); MEAN PLATELET VOLUME 10.5 fL (9.2-13.0); MONOCYTES 8.4 %; NEUTROPHILS 55.9 %; NEUTROPHILS ABSOLUTE 3.34 10/3/uL (2.02-8.40); PLATELET COUNT 283 10/3/uL (150-400); RBC DISTRIBUTION WIDTH 15.3 % (12.0-16.0); RED CELL COUNT 4.25 10/6/uL (4.0-5.6)
[2016-08-09 06:45] LABS: MANUAL DIFF NO %
[2016-08-09 07:01] LABS: BUN (BLOOD UREA NITROGEN) 10 MG/DL (6-23); CALCIUM, SERUM 8.5 MG/DL (8.5-10.4); CHLORIDE, SERUM 109 MMOL/L (96-112); CHOLESTEROL 133 MG/DL (< 200); CO2 (CARBON DIOXIDE) 27 MMOL/L (24-34); CREATININE 0.74 MG/DL (0.55-1.02); GFR AFRICAN AMERICAN 104 ML/MIN (>=60); GFR NON AFRICAN AMERICAN 90 ML/MIN (>=60); GLUCOSE, SERUM 105 MG/DL (60-99); HDL CHOLESTEROL 33 MG/DL (> 49); LDL CHOLESTEROL 66 MG/DL (< 130); NON-HDL CHOLESTEROL 100 MG/DL (< 160); POTASSIUM, SERUM 3.4 MMOL/L (3.5-5.3); SODIUM, SERUM 146 MMOL/L (135-148)
[2016-08-09 07:03] LABS: TRIGLYCERIDE 172 MG/DL (< 150)
[2016-08-10 07:04] LABS: BASOPHILS 0.3 %; BASOPHILS ABSOLUTE 0.02 10/3/uL (0.0-0.16); EOSINOPHILS ABSOLUTE 0.15 10/3/uL (0.0-0.53); HEMATOCRIT 36.8 % (36.0-48.0); HEMOGLOBIN 11.7 g/dL (12.0-16.0); IMMATURE GRANULOCYTES 0.1 %; IMMATURE GRANULOCYTES ABSOLUTE 0.01 10/3/uL (0.0-0.11); LYMPHOCYTES 21.7 %; MEAN CORPUS HGB CONC 31.8 g/dL (32.0-36.0); MEAN CORPUSCULAR HEMOGLOB 27.7 pg (26.0-34.0); MEAN PLATELET VOLUME 10.1 fL (9.2-13.0); MONOCYTES 9.6 %; MONOCYTES ABSOLUTE 0.71 10/3/uL (0.21-1.20); NEUTROPHILS 66.3 %; PLATELET COUNT 260 10/3/uL (150-400); RED CELL COUNT 4.23 10/6/uL (4.0-5.6); WHITE BLOOD CELLS 7.4 10/3/uL (4.5-10.5)
[2016-08-10 07:06] LABS: MANUAL DIFF NO %
[2016-08-10 07:08] LABS: INTERNATIONAL NORMAL RATI 1.1 UNITS (-); PROTIME (NOT ORD) 13.8 SEC (12.0-14.5)
[2016-08-10 07:18] LABS: A/G RATIO 0.9 (0.7-1.9); ALBUMIN 3.1 G/DL (3.5-5.0); ALKALINE PHOSPHATASE 89 U/L (45-117); BUN (BLOOD UREA NITROGEN) 8 MG/DL (6-23); CALCIUM, SERUM 8.6 MG/DL (8.5-10.4); CHLORIDE, SERUM 107 MMOL/L (96-112); CO2 (CARBON DIOXIDE) 27 MMOL/L (24-34); CREATININE 0.76 MG/DL (0.55-1.02); GFR AFRICAN AMERICAN 101 ML/MIN (>=60); GFR NON AFRICAN AMERICAN 87 ML/MIN (>=60); GLOBULIN 3.3 G/DL (2.5-4.1); GLUCOSE, SERUM 96 MG/DL (60-99); IRON BINDING CAPACITY 306 MCG/DL (225-410); SGOT(AST) 14 U/L (5-40); SGPT(ALT) 14 U/L (5-65); SODIUM, SERUM 142 MMOL/L (135-148); TOTAL BILIRUBIN 0.7 MG/DL (0-1.2); TOTAL PROTEIN 6.4 G/DL (6.0-8.5)
[2016-08-10 07:21] LABS: POTASSIUM, SERUM 4.1 MMOL/L (3.5-5.3)
[2016-08-10 11:13] LABS: ASCORBIC ACID (UR NOT ORDER) 40 (NEG); BILIRUBIN, URINE NEGATIVE (NEG); KETONE, URINE NEGATIVE (NEG); LEUKOCYTE ESTERASE(NOT OR NEG (NEG); WBC (NOT ORDERED) (RFLEX) 3 (0-5)
[2016-08-10 17:04] LABS: BE (BASE EXCESS) -5.2 MEQ/L (0 +/- 2.5); CARBOXYHEMOGLOBIN 0.3 % (0-3); HCO3 (ACTUAL BICARBONATE) 20.8 MEQ/L (23-27); HEMOBLOGIN CONTENT 10.6 G/DL (12-16); INSTRUMENT SERIAL # 11843; METHEMOGLOBIN 0.6 % (0-3); MODE SIMV; O2 CONTENT 15.8 VOL% (18-24); OPERATOR ID 32214; PCO2 (CO2 TENSION) 42 MMHG (35-45); PO2 (O2 TENSION) 416 MMHG (79-93); SAMPLE Arterial; TIDAL VOLUME 500 ML; pH 7.31 (7.37-7.43)
[2016-08-10 17:15] LABS: HEMOGLOBIN 9.5 g/dL (12.0-16.0); PLATELET COUNT 196 10/3/uL (150-400)
[2016-08-10 17:17] LABS: HEMATOCRIT 30.1 % (36.0-48.0)
[2016-08-10 17:24] LABS: INTERNATIONAL NORMAL RATI 1.5 UNITS (-)
[2016-08-10 17:26] LABS: BUN (BLOOD UREA NITROGEN) 10 MG/DL (6-23); CALCIUM, SERUM 7.6 MG/DL (8.5-10.4); CHLORIDE, SERUM 112 MMOL/L (96-112); CO2 (CARBON DIOXIDE) 24 MMOL/L (24-34); GFR AFRICAN AMERICAN 82 ML/MIN (>=60); GFR NON AFRICAN AMERICAN 71 ML/MIN (>=60); GLUCOSE, SERUM 86 MG/DL (60-99); POTASSIUM, SERUM 4.8 MMOL/L (3.5-5.3); SODIUM, SERUM 145 MMOL/L (135-148)
[2016-08-10 17:33] LABS: PARTIAL THROMBO TIME 35.3 SEC (22.5-37.2)
[2016-08-10 17:35] LABS: PROTIME (NOT ORD) 17.9 SEC (12.0-14.5)
[2016-08-10 22:21] LABS: HEMATOCRIT 28.4 % (36.0-48.0); HEMOGLOBIN 8.8 g/dL (12.0-16.0)
[2016-08-10 22:38] LABS: BUN (BLOOD UREA NITROGEN) 13 MG/DL (6-23); CALCIUM, SERUM 7.7 MG/DL (8.5-10.4); CHLORIDE, SERUM 115 MMOL/L (96-112); CO2 (CARBON DIOXIDE) 26 MMOL/L (24-34); CREATININE 0.93 MG/DL (0.55-1.02); GFR AFRICAN AMERICAN 79 ML/MIN (>=60); GFR NON AFRICAN AMERICAN 68 ML/MIN (>=60); POTASSIUM, SERUM 4.5 MMOL/L (3.5-5.3); SODIUM, SERUM 146 MMOL/L (135-148)
[2016-08-10 22:39] LABS: GLUCOSE, SERUM 108 MG/DL (60-99)
[2016-08-10 23:04] LABS: BE (BASE EXCESS) -3.2 MEQ/L (0 +/- 2.5); CARBOXYHEMOGLOBIN 0.3 % (0-3); DEVICE NC; HCO3 (ACTUAL BICARBONATE) 23.5 MEQ/L (23-27); INSTRUMENT SERIAL # 11843; METHEMOGLOBIN 0.7 % (0-3); OPERATOR ID 16469; PCO2 (CO2 TENSION) 50 MMHG (35-45); PO2 (O2 TENSION) 166 MMHG (79-93); SAMPLE Arterial; pH 7.29 (7.37-7.43)
[2016-08-11 03:20] LABS: BASOPHILS 0.1 %; BASOPHILS ABSOLUTE 0.01 10/3/uL (0.0-0.16); EOSINOPHILS 0.1 %; EOSINOPHILS ABSOLUTE 0.01 10/3/uL (0.0-0.53); HEMATOCRIT 27.3 % (36.0-48.0); HEMOGLOBIN 8.9 g/dL (12.0-16.0); IMMATURE GRANULOCYTES 0.3 %; IMMATURE GRANULOCYTES ABSOLUTE 0.06 10/3/uL (0.0-0.11); LYMPHOCYTES 5.4 %; MEAN CORPUS HGB CONC 32.6 g/dL (32.0-36.0); MEAN CORPUSCULAR HEMOGLOB 28.8 pg (26.0-34.0); MEAN CORPUSCULAR VOLUME 88.3 fL (80-100); MEAN PLATELET VOLUME 9.6 fL (9.2-13.0); MONOCYTES ABSOLUTE 0.73 10/3/uL (0.21-1.20); NEUTROPHILS 90.1 %; NEUTROPHILS ABSOLUTE 16.67 10/3/uL (2.02-8.40); PLATELET COUNT 198 10/3/uL (150-400); RBC DISTRIBUTION WIDTH 15.3 % (12.0-16.0)
[2016-08-11 03:23] LABS: MANUAL DIFF NO %; RED CELL COUNT 3.09 10/6/uL (4.0-5.6); WHITE BLOOD CELLS 18.5 10/3/uL (4.5-10.5)
[2016-08-11 03:41] LABS: BUN (BLOOD UREA NITROGEN) 15 MG/DL (6-23); CALCIUM, SERUM 7.9 MG/DL (8.5-10.4); CHLORIDE, SERUM 114 MMOL/L (96-112); CO2 (CARBON DIOXIDE) 25 MMOL/L (24-34); CREATININE 0.78 MG/DL (0.55-1.02); GFR AFRICAN AMERICAN 98 ML/MIN (>=60); GFR NON AFRICAN AMERICAN 84 ML/MIN (>=60); GLUCOSE, SERUM 105 MG/DL (60-99); POTASSIUM, SERUM 4.4 MMOL/L (3.5-5.3); SODIUM, SERUM 146 MMOL/L (135-148)
[2016-08-11 16:22] LABS: HEMOGLOBIN 7.6 g/dL (12.0-16.0)
[2016-08-11 16:26] LABS: HEMATOCRIT 24.3 % (36.0-48.0)
[2016-08-12 04:10] LABS: BASOPHILS 0 %; EOSINOPHILS 0 %; IMMATURE GRANULOCYTES 0.4 %; IMMATURE GRANULOCYTES ABSOLUTE 0.04 10/3/uL (0.0-0.11); LYMPHOCYTES 9.1 %; LYMPHOCYTES ABSOLUTE 0.98 10/3/uL (0.67-4.30); MEAN CORPUS HGB CONC 32.3 g/dL (32.0-36.0); MEAN CORPUSCULAR HEMOGLOB 28.6 pg (26.0-34.0); MEAN CORPUSCULAR VOLUME 88.6 fL (80-100); MEAN PLATELET VOLUME 10.1 fL (9.2-13.0); MONOCYTES 9.3 %; NEUTROPHILS 81.2 %; NEUTROPHILS ABSOLUTE 8.74 10/3/uL (2.02-8.40); PLATELET COUNT 154 10/3/uL (150-400); RBC DISTRIBUTION WIDTH 15.6 % (12.0-16.0)
[2016-08-12 04:13] LABS: HEMATOCRIT 21.7 % (36.0-48.0); MANUAL DIFF NO %; RED CELL COUNT 2.45 10/6/uL (4.0-5.6); WHITE BLOOD CELLS 10.8 10/3/uL (4.5-10.5)
[2016-08-12 04:27] LABS: CALCIUM, SERUM 8.4 MG/DL (8.5-10.4); CHLORIDE, SERUM 108 MMOL/L (96-112); CO2 (CARBON DIOXIDE) 27 MMOL/L (24-34); CREATININE 0.93 MG/DL (0.55-1.02); GFR AFRICAN AMERICAN 79 ML/MIN (>=60); GFR NON AFRICAN AMERICAN 68 ML/MIN (>=60); GLUCOSE, SERUM 108 MG/DL (60-99); POTASSIUM, SERUM 4.5 MMOL/L (3.5-5.3); SODIUM, SERUM 142 MMOL/L (135-148)
[2016-08-12 04:31] LABS: BUN (BLOOD UREA NITROGEN) 19 MG/DL (6-23)
[2016-08-13 04:48] LABS: BASOPHILS 0 %; EOSINOPHILS 0.1 %; EOSINOPHILS ABSOLUTE 0.01 10/3/uL (0.0-0.53); HEMATOCRIT 21.2 % (36.0-48.0); IMMATURE GRANULOCYTES 0.3 %; IMMATURE GRANULOCYTES ABSOLUTE 0.03 10/3/uL (0.0-0.11); LYMPHOCYTES 12.3 %; LYMPHOCYTES ABSOLUTE 1.12 10/3/uL (0.67-4.30); MEAN CORPUS HGB CONC 31.6 g/dL (32.0-36.0); MEAN CORPUSCULAR HEMOGLOB 27.5 pg (26.0-34.0); MEAN CORPUSCULAR VOLUME 86.9 fL (80-100); MEAN PLATELET VOLUME 10.3 fL (9.2-13.0); MONOCYTES 11.4 %; MONOCYTES ABSOLUTE 1.04 10/3/uL (0.21-1.20); NEUTROPHILS 75.9 %; NEUTROPHILS ABSOLUTE 6.92 10/3/uL (2.02-8.40); PLATELET COUNT 181 10/3/uL (150-400); RBC DISTRIBUTION WIDTH 15.6 % (12.0-16.0); RED CELL COUNT 2.44 10/6/uL (4.0-5.6); WHITE BLOOD CELLS 9.1 10/3/uL (4.5-10.5)
[2016-08-13 04:52] LABS: HEMOGLOBIN 6.7 g/dL (12.0-16.0)
[2016-08-13 04:54] LABS: MANUAL DIFF NO %
[2016-08-13 05:00] LABS: CALCIUM, SERUM 8.2 MG/DL (8.5-10.4); CHLORIDE, SERUM 103 MMOL/L (96-112); CO2 (CARBON DIOXIDE) 27 MMOL/L (24-34); CREATININE 0.88 MG/DL (0.55-1.02); GFR AFRICAN AMERICAN 85 ML/MIN (>=60); GFR NON AFRICAN AMERICAN 73 ML/MIN (>=60); POTASSIUM, SERUM 4.8 MMOL/L (3.5-5.3); SODIUM, SERUM 139 MMOL/L (135-148)
[2016-08-13 05:02] LABS: BUN (BLOOD UREA NITROGEN) 23 MG/DL (6-23); GLUCOSE, SERUM 131 MG/DL (60-99)
[2016-08-14 05:45] LABS: BASOPHILS 0.1 %; BASOPHILS ABSOLUTE 0.01 10/3/uL (0.0-0.16); EOSINOPHILS 1.3 %; IMMATURE GRANULOCYTES 0.1 %; IMMATURE GRANULOCYTES ABSOLUTE 0.01 10/3/uL (0.0-0.11); LYMPHOCYTES 13.5 %; LYMPHOCYTES ABSOLUTE 1.03 10/3/uL (0.67-4.30); MEAN CORPUSCULAR VOLUME 87.3 fL (80-100); MEAN PLATELET VOLUME 10.5 fL (9.2-13.0); MONOCYTES 14.2 %; MONOCYTES ABSOLUTE 1.09 10/3/uL (0.21-1.20); NEUTROPHILS 70.8 %; NEUTROPHILS ABSOLUTE 5.41 10/3/uL (2.02-8.40); PLATELET COUNT 213 10/3/uL (150-400); RBC DISTRIBUTION WIDTH 15.1 % (12.0-16.0); WHITE BLOOD CELLS 7.7 10/3/uL (4.5-10.5)
[2016-08-14 05:46] LABS: BUN (BLOOD UREA NITROGEN) 21 MG/DL (6-23); CALCIUM, SERUM 8.4 MG/DL (8.5-10.4); CHLORIDE, SERUM 102 MMOL/L (96-112); CO2 (CARBON DIOXIDE) 26 MMOL/L (24-34); CREATININE 0.71 MG/DL (0.55-1.02); GFR AFRICAN AMERICAN 110 ML/MIN (>=60); GFR NON AFRICAN AMERICAN 95 ML/MIN (>=60); GLUCOSE, SERUM 121 MG/DL (60-99); SODIUM, SERUM 138 MMOL/L (135-148)
[2016-08-14 05:47] LABS: POTASSIUM, SERUM 3.7 MMOL/L (3.5-5.3)
[2016-08-14 05:51] LABS: HEMATOCRIT 26.2 % (36.0-48.0); HEMOGLOBIN 8.7 g/dL (12.0-16.0); MANUAL DIFF NO %; MEAN CORPUS HGB CONC 33.2 g/dL (32.0-36.0)
[2016-08-15 06:24] LABS: BASOPHILS 0.2 %; BASOPHILS ABSOLUTE 0.02 10/3/uL (0.0-0.16); EOSINOPHILS 2.6 %; EOSINOPHILS ABSOLUTE 0.27 10/3/uL (0.0-0.53); HEMOGLOBIN 9.4 g/dL (12.0-16.0); IMMATURE GRANULOCYTES 0.3 %; IMMATURE GRANULOCYTES ABSOLUTE 0.03 10/3/uL (0.0-0.11); LYMPHOCYTES 10.1 %; LYMPHOCYTES ABSOLUTE 1.03 10/3/uL (0.67-4.30); MEAN CORPUSCULAR VOLUME 86.3 fL (80-100); MEAN PLATELET VOLUME 10.9 fL (9.2-13.0); MONOCYTES 14.7 %; NEUTROPHILS 72.1 %; NEUTROPHILS ABSOLUTE 7.35 10/3/uL (2.02-8.40); PLATELET COUNT 190 10/3/uL (150-400); RBC DISTRIBUTION WIDTH 14.7 % (12.0-16.0); WHITE BLOOD CELLS 10.2 10/3/uL (4.5-10.5)
[2016-08-15 06:25] LABS: HEMATOCRIT 31.4 % (36.0-48.0); MANUAL DIFF NO %; MEAN CORPUS HGB CONC 29.9 g/dL (32.0-36.0); MEAN CORPUSCULAR HEMOGLOB 25.8 pg (26.0-34.0); RED CELL COUNT 3.64 10/6/uL (4.0-5.6)
[2016-08-15 07:36] LABS: BUN (BLOOD UREA NITROGEN) 19 MG/DL (6-23); CALCIUM, SERUM 8.3 MG/DL (8.5-10.4); CHLORIDE, SERUM 101 MMOL/L (96-112); CO2 (CARBON DIOXIDE) 26 MMOL/L (24-34); CREATININE 0.73 MG/DL (0.55-1.02); GFR AFRICAN AMERICAN 106 ML/MIN (>=60); GFR NON AFRICAN AMERICAN 91 ML/MIN (>=60); GLUCOSE, SERUM 125 MG/DL (60-99); SODIUM, SERUM 137 MMOL/L (135-148)
[2016-08-17] MEDS ORDERED: PROVHFA INH (08:21)
[2016-08-17] MEDS ORDERED: PERCOCET 10/3251 TAB PO (08:21)
[2016-08-17] MEDS ORDERED: CORDARONE PO (08:22)
[2016-08-17] MEDS ORDERED: ANOROELLIPTA INH (08:22)
[2016-08-17] MEDS ORDERED: XARELTO20 MG PO (08:22)
[2016-08-17] MEDS ORDERED: VITC500 PO (08:23)
[2016-08-17] MEDS ORDERED: LAN125 PO (08:23)
== END 2016-08-17 12:19 | disposition home health service (06) | DRG 234 ==
LOC: ER 21:27 → CDU1 23:59 → SDC/OF 08-10 10:26 → CVICU 08-10 15:54 → 5NO 08-12 13:46
PROVIDERS: Emergency Medicine; Internal Medicine; Nurse Practitioner Family; Thoracic Surgery (Cardiothoracic Vascular Surgery)
PROC: 4A023N7 Measurement of Cardiac Sampling and Pressure, Left Heart, Percutaneous Approach (ICD-10-PCS; 2016-08-09)
PROC: B2111ZZ Fluoroscopy of Multiple Coronary Arteries using Low Osmolar Contrast (ICD-10-PCS; 2016-08-09)
PROC: B2151ZZ Fluoroscopy of Left Heart using Low Osmolar Contrast (ICD-10-PCS; 2016-08-09)
PROC: 0210099 Bypass Coronary Artery, One Artery from Left Internal Mammary with Autologous Venous Tissue, Open Approach (ICD-10-PCS; 2016-08-10)
PROC: 06BP4ZZ Excision of Right Saphenous Vein, Percutaneous Endoscopic Approach (ICD-10-PCS; 2016-08-10)
PROC: 5A1221Z Performance of Cardiac Output, Continuous (ICD-10-PCS; 2016-08-10)
PROC: B246ZZ4 Ultrasonography of Right and Left Heart, Transesophageal (ICD-10-PCS; 2016-08-10)
PROC: 021109W Bypass Coronary Artery, Two Arteries from Aorta with Autologous Venous Tissue, Open Approach (ICD-10-PCS; principal; 2016-08-10 13:30)
PROC: 30233N1 Transfusion of Nonautologous Red Blood Cells into Peripheral Vein, Percutaneous Approach (ICD-10-PCS; 2016-08-13)
PROC: 02HV33Z Insertion of Infusion Device into Superior Vena Cava, Percutaneous Approach (ICD-10-PCS; 2016-08-15)
DX: I21.4 Non-ST elevation (NSTEMI) myocardial infarction (principal); J44.9 Chronic obstructive pulmonary disease, unspecified; I48.0 Paroxysmal atrial fibrillation; D62 Acute posthemorrhagic anemia; J95.811 Postprocedural pneumothorax; I10 Essential (primary) hypertension; I25.10 Atherosclerotic heart disease of native coronary artery without angina pectoris; F17.210 Nicotine dependence, cigarettes, uncomplicated; Z95.5 Presence of coronary angioplasty implant and graft; Z79.899 Other long term (current) drug therapy; Z91.14 Patient's other noncompliance with medication regimen; Z82.49 Family history of ischemic heart disease and other diseases of the circulatory system; I35.0 Nonrheumatic aortic (valve) stenosis; I34.0 Nonrheumatic mitral (valve) insufficiency; E78.5 Hyperlipidemia, unspecified; F15.10 Other stimulant abuse, uncomplicated
CPT/HCPCS: 36415; 36569; 71010; 71020; 80048; 80053; 80061; 80305; 80307; 81001; 82330; 82803; 82805; 82947; 82962; 83036; 83550; 83735; 83880; 84132; 84295; 84460; 84484; 84703; 85014; 85018; 85025; 85049; 85347; 85610; 85730; 86850; 86900; 86901; 86920; 87040; 87641; 93005; 93306; 93312; 93320; 93325; 93458; 93880; 94002; 94640; 94660; 94668; 94770; 99152; 99153; 99291; A9270-GY; C1713; C1751; C1769; C1887; C1894; J0282; J0690; J1160; J1644; J2150; J2250; J2370; J2405; J2440; J2720; J2765; J2795; J2930; J3010; J3370; J3475; J3480; P9016; P9045; P9047; Q9967

== ENCOUNTER 2016-08-24 23:38 | Emergency (ER) | payer OTHER ==
[2016-08-24 18:23] LABS: BASOPHILS 0.4 %; BASOPHILS ABSOLUTE 0.04 10/3/uL (0.0-0.16); EOSINOPHILS 3.8 %; EOSINOPHILS ABSOLUTE 0.35 10/3/uL (0.0-0.53); ER CBC TAT 0 Hrs 05 Mins; HEMATOCRIT 31.1 % (36.0-48.0); HEMOGLOBIN 9.7 g/dL (12.0-16.0); IMMATURE GRANULOCYTES 0.5 %; IMMATURE GRANULOCYTES ABSOLUTE 0.05 10/3/uL (0.0-0.11); LYMPHOCYTES 4.3 %; MANUAL DIFF NO %; MEAN CORPUS HGB CONC 31.2 g/dL (32.0-36.0); MEAN CORPUSCULAR HEMOGLOB 27.6 pg (26.0-34.0); MEAN CORPUSCULAR VOLUME 88.6 fL (80-100); MEAN PLATELET VOLUME 8.8 fL (9.2-13.0); MONOCYTES 5.2 %; MONOCYTES ABSOLUTE 0.48 10/3/uL (0.21-1.20); NEUTROPHILS 85.8 %; NEUTROPHILS ABSOLUTE 7.99 10/3/uL (2.02-8.40); PLATELET COUNT 540 10/3/uL (150-400); RBC DISTRIBUTION WIDTH 16.3 % (12.0-16.0); RED CELL COUNT 3.51 10/6/uL (4.0-5.6); WHITE BLOOD CELLS 9.3 10/3/uL (4.5-10.5)
[2016-08-24 18:32] LABS: INTERNATIONAL NORMAL RATI 2.6 UNITS (-); PARTIAL THROMBO TIME 56.4 SEC (22.5-37.2)
[2016-08-24 18:34] LABS: PROTIME (NOT ORD) 27.3 SEC (12.0-14.5)
[2016-08-24 18:36] LABS: A/G RATIO 0.6 (0.7-1.9); ALBUMIN 2.6 G/DL (3.5-5.0); ALKALINE PHOSPHATASE 219 U/L (45-117); BUN (BLOOD UREA NITROGEN) 12 MG/DL (6-23); CHLORIDE, SERUM 97 MMOL/L (96-112); CO2 (CARBON DIOXIDE) 33 MMOL/L (24-34); CREATININE 0.78 MG/DL (0.55-1.02); GFR AFRICAN AMERICAN 98 ML/MIN (>=60); GFR NON AFRICAN AMERICAN 84 ML/MIN (>=60); GLOBULIN 4.2 G/DL (2.5-4.1); GLUCOSE, SERUM 103 MG/DL (60-99); POTASSIUM, SERUM 3.1 MMOL/L (3.5-5.3); SGOT(AST) 26 U/L (5-40); SGPT(ALT) 23 U/L (5-65); SODIUM, SERUM 139 MMOL/L (135-148); TOTAL BILIRUBIN 0.7 MG/DL (0-1.2); TOTAL PROTEIN 6.8 G/DL (6.0-8.5)
[2016-08-24 22:57] LABS: DIGOXIN 0.9 NG/ML (0.8-2.0)
[2016-08-24 23:15] LABS: INFLUENZA A SCREEN NEGATIVE (NEGATIVE); INFLUENZA B SCREEN NEGATIVE (NEGATIVE)
[~2016-08-24 23:38] MED LIST changes: +ANOROELLIPTA INH; +CORDARONE PO; +LAN125 PO; +PERCOCET 10/3251 TAB PO; +PROVHFA INH; +VITC500 PO; +XARELTO20 MG PO
[2016-08-24 23:50] LABS: ASCORBIC ACID (UR NOT ORDER) 40 (NEG); BILIRUBIN, URINE NEGATIVE (NEG); ER URINALYSIS TAT 0 Hrs 00 Mins; KETONE, URINE NEGATIVE (NEG); LEUKOCYTE ESTERASE(NOT OR NEG (NEG); NITRITE (URINE) NEG (NEG); WBC (NOT ORDERED) (RFLEX) 1 (0-5)
== END 2016-08-25 01:30 | disposition home or self-care (01) ==
LOC: ER 23:38
PROVIDERS: Emergency Medicine
DX: R50.9 Fever, unspecified (principal); R10.9 Unspecified abdominal pain; R51 Headache; R53.1 Weakness; I25.810 Atherosclerosis of coronary artery bypass graft(s) without angina pectoris; E87.6 Hypokalemia; J44.9 Chronic obstructive pulmonary disease, unspecified; I25.2 Old myocardial infarction; I10 Essential (primary) hypertension; F17.200 Nicotine dependence, unspecified, uncomplicated; Z95.5 Presence of coronary angioplasty implant and graft; Z90.710 Acquired absence of both cervix and uterus; Z88.6 Allergy status to analgesic agent; Z79.82 Long term (current) use of aspirin; Z79.899 Other long term (current) drug therapy
CPT/HCPCS: 36415; 70450; 71010; 74176; 80053; 80162; 81001; 83690; 84145; 85025; 85610; 85730; 86850; 86900; 86901; 87040; 87804; 93005; 96374; 96375; 99285; A9270-GY; J1170; J2405